=== PATIENT | female | born 1960 | race Caucasian/White ===

== ENCOUNTER 2018-04-03 19:43 | Emergency (ER) | payer BC, OTHER ==
[~2018-04-03] VITALS: Ht 170.2 cm; Wt 79.4 kg
[~2018-04-03 19:43] MED LIST: IBUPROFEN800 MG ORAL; MECLIZINE HCL25 MG ORAL
[2018-04-03 20:04] VITALS: BP 117/78
[2018-04-03 20:59] VITALS: BP 117/78
--- NOTE | 2018-04-03 21:03 | Diagnostic Imaging Report ---
EXAM: XR Right Foot Complete, 3 Views CLINICAL HISTORY: PAIN TECHNIQUE: Frontal, lateral and oblique views of the right foot. COMPARISON: No relevant prior studies available. FINDINGS: Bones/joints: Probable erosive changes in the region of the distal aspect of the proximal phalanx of the fifth digit. The margins appear corticated which suggests a chronic process. Mild joint space loss suspected of the first metatarsal phalangeal joint. No acute fracture. No dislocation. Soft tissues: Unremarkable. No radiopaque foreign body. IMPRESSION: No definite plain film evidence for acute fracture or dislocation. If there is continued clinical concern for fracture, consider CT or MRI for further evaluation. Chronic changes suspected of the fifth toe.
--- NOTE | 2018-04-03 22:28 | Emergency Room Report ---
History of Present Illness General Chief Complaint: Lower Extremity Injury Source: Patient Present Illness HPI 58-year-old female presents ED for evaluation. Complaining of right big toe pain. Started last night after she rolled her foot. Denies any other injuries. Notes pain and swelling to the right big toe. Throbbing, 9 out of 10 , nonradiating. Denies any other injuries. No other aggravating relieving factors. Denies any other associated symptoms Allergies: Coded Allergies: No Known Allergies (Unverified , 06/08/14) Patient History Past Medical History: none Past Surgical History: none Pertinent Family History: none Social History: Denies: smoking, alcohol use, drug use Now: No Immunizations: UTD Reviewed Nursing Documentation: PMH: Agreed; PSxH: Agreed Nursing Documentation-PMH Past Medical History: No Stated History Review of Systems All Other Systems: negative except mentioned in HPI Physical Exam Vital Signs Date Time Temp Pulse Resp B/P (MAP) Pulse Ox O2 Delivery O2 Flow Rate FiO2 04/03/18 19:46 98.1 68 18 117/78 99 Room Air Sp02 EP Interpretation: reviewed, normal General Appearance: no apparent distress, alert, GCS 15, non-toxic Head: normocephalic Eyes: bilateral eye normal inspection, bilateral eye PERRL ENT: normal ENT inspection Neck: normal inspection Respiratory: normal inspection Cardiovascular #1: normal inspection Gastrointestinal: normal inspection Rectal: deferred Genitourinary: no CVA tenderness Musculoskeletal: tender - R big toe. limited ROM Neurologic: alert, oriented x3, responsive, motor strength/tone normal, sensory intact, speech normal Psychiatric: normal inspection Skin: normal inspection Lymphatic: normal inspection Procedures Splinting Splinting : Consent: Verbal Pre-Made Type: kristel tape Pre-Proc Neuro Vasc Exam: normal Post-Proc Neuro Vasc Exam: normal Patient Tolerated: Well Complications: None Medical Decision Making Diagnostic Impression: Primary Impression: Toe injury Qualified Codes: S99.921A - Unspecified injury of right foot, initial encounter ER Course Hospital Course 58-year-old F presents to ED complaining of R big toe pain/swelling Differential diagnoses include: Fracture, dislocation, sprain, contusion Clinical course Patient placed on stretcher. After initial history and physical, I ordered xrays of R foot. patient declined pain meds Xrays read shows no acute fracture/dislocation. kristel tape applied. cast shoe given Discussed findings with patient. Recommend ice, rest, elevation. Analgesics. We'll provide podiatry referral as outpatient Diagnosis - toe injury Stable and discharged to home. apply ice, keep elevated. weight bear as tolerated. Followup with PMD/podiatry. Return to ED if symptoms recur or worsen Other X-Ray Diagnostic Results Other X-Ray Diagnostic Results : X-Ray ordered: R foot # of Views/Limited Vs Complete: 3 View Indication: Pain EP Interpretation: Yes Interpretation: no dislocation, no soft tissue swelling, no fractures Impression: No acute disease Electronically Signed by: Electronically signed by Albert Redding MD Last Vital Signs Date Time Temp Pulse Resp B/P (MAP) Pulse Ox O2 Delivery O2 Flow Rate FiO2 04/03/18 20:59 98.1 83 18 117/78 99 Room Air Status: improved Disposition: HOME, SELF-CARE Condition: Stable Referrals: PILAR TRINIDAD M.D., Farshid DPM Patient Instructions: How to Albert Last MD Apr 03, 2018 22:27
== END 2018-04-03 21:00 | disposition home or self-care (01) ==
LOC: EMR 20:14
DX: S99.921A Unspecified injury of right foot, initial encounter (principal); X50.1XXA Overexertion from prolonged static or awkward postures, initial encounter; Y92.89 Other specified places as the place of occurrence of the external cause
CPT/HCPCS: 99283

== ENCOUNTER → 2018-05-29 | Emergency (ER) | payer BC ==
[~2018-05-29] VITALS: Ht 172.7 cm; Wt 78.0 kg
[~2018-05-29] MED LIST changes: +ALBUTEROL SULF8.5 GM INH; +Albuterol ud Inhalation HHN ONE; +Ipratropium 0.02% Inh Soln 2.5ml UD HHN ONE; +MEDROL DOSEPAK4 MG ORAL; +ZOLOFT25 MG ORAL
--- NOTE | 2018-05-29 20:59 | NUR ---
ED Nurse Note: Received report. Pt from home, AAOx4, ambulatory, c/o asthma flare up that started Friday05/26/18 and continued with wheezing and consistent coughing. VSS. Will carry out MD orders.
[2018-05-29 21:00] VITALS: BP 107/90
--- NOTE | 2018-05-29 21:08 | Emergency Room Report ---
History of Present Illness General Chief Complaint: Asthma Source: Patient Present Illness HPI Patient present with complaints of asthma exacerbation ongoing since Friday Patient reports that she is out of her inhaler Denies any chest pain she has a mild cough denies any vomiting or diarrhea and eyes any fevers or chills denies any recent travel Allergies: Coded Allergies: No Known Allergies (Unverified , 06/08/14) Patient History Past Medical History: see triage record Pertinent Family History: none Last Menstrual Period: GONZALO Reviewed Nursing Documentation: PMH: Agreed; PSxH: Agreed Nursing Documentation-PMH Past Medical History: No History, Except For Hx Asthma: Yes Review of Systems All Other Systems: negative except mentioned in HPI Physical Exam Vital Signs Date Time Temp Pulse Resp B/P (MAP) Pulse Ox O2 Delivery O2 Flow Rate FiO2 05/29/18 20:53 98.4 101 16 136/70 95 Room Air Sp02 EP Interpretation: reviewed, normal General Appearance: well appearing, no apparent distress Head: normocephalic, atraumatic Eyes: bilateral eye PERRL, bilateral eye EOMI ENT: hearing grossly normal, normal pharynx, TMs + canals normal, uvula midline Neck: full range of motion, supple, no meningismus, no bony tend Respiratory: no rhonchi, no respiratory distress, no retraction, no accessory muscle use, wheezing - fine Bilaterally Cardiovascular #1: normal peripheral pulses, regular rate, rhythm, no edema, no gallop, no JVD, no murmur Gastrointestinal: normal bowel sounds, non tender, soft, no mass, no organomegaly, non-distended, no guarding, no hernia, no pulsatile mass, no rebound Genitourinary: no CVA tenderness Musculoskeletal: normal inspection Neurologic: oriented x3, responsive, fly finisher III-XII nml as tested, motor strength/ tone normal, sensory intact Psychiatric: mood/affect normal Skin: normal color, no rash, warm/dry, palpation normal Lymphatic: normal inspection, no adenopathy Medical Decision Making Diagnostic Impression: Primary Impression: Asthma attack ER Course Patient is a fairly complex patient with multiple differential to consideration including but not limited to cardiac cardiopulmonary and vascular emergencies Patient shows some evidence of wheezing on exam Breathing treatment was initiated in the ER Patient has done significantly better stable for close outpatient follow-up Rhythm Strip Diag. Results EP Interpretation: yes Rate: 70 Rhythm: NSR, no PVC's, no ectopy Last Vital Signs Date Time Temp Pulse Resp B/P (MAP) Pulse Ox O2 Delivery O2 Flow Rate FiO2 05/29/18 20:53 98.4 101 16 136/70 95 Room Air Status: improved Disposition: HOME, SELF-CARE Condition: Improved Scripts Methylprednisolone (Methylprednisolone*) 4MG Dspk 4 MG ORAL DIRECTED for 6 Days, #21 EA 0 Refills Day 1: Two tablets before breakfast, one after lunch, one after dinner, and two at bedtime. If started late in the day, take all six tablets at once or divide into two or three doses, unless otherwise directed by prescriber. Day 2: One tablet before breakfast, one after lunch, one after dinner, and two at bedtime Day 3: One tablet before breakfast, one after lunch, one after dinner, and one at bedtime Day 4: One tablet before breakfast, one after lunch, and one at bedtime Day 5: One tablet before breakfast and one at bedtime Day 6: One tablet before breakfast Prov: Mac Mendiola DO 05/29/18 Albuterol Sulfate* (ALBUTEROL SULFATE MDI*) 8.5 Gm Hfa.aer.ad 2 PUFF INH Q6H, #2 EA 0 Refills Prov: Mac Mendiola DO 05/29/18 Additional Instructions: Patient is provided with the discharge instructions notified to follow up with primary doctor in the next 2-3 days otherwise return to the er with any worsening symptoms. Please note that this report is being documented using [employer] technology. This can lead to erroneous entry secondary to incorrect interpretation by the dictating instrument. Mac Mendiola DO May 29, 2018 21:08
[2018-05-29 21:43] VITALS: BP 107/89
== END | disposition home or self-care (01) ==
LOC: EMR 21:30
DX: J45.901 Unspecified asthma with (acute) exacerbation (principal)
CPT/HCPCS: 94640; 94664; 99284

== ENCOUNTER 2018-06-01 10:09 | Emergency (ER) | payer BC ==
[~2018-06-01] VITALS: Ht 172.7 cm; Wt 78.0 kg
[~2018-06-01 10:09] MED LIST changes: -Albuterol ud Inhalation HHN ONE; -Ipratropium 0.02% Inh Soln 2.5ml UD HHN ONE
[2018-06-01 10:27] VITALS: BP 126/80
--- NOTE | 2018-06-01 10:27 | NUR ---
ED Nurse Note: PT WALKED IN TO ER TODAY FROM HOME. AOX4. PT C/O COUGH AND ASTHMA EXACERBATION. PT STATES SHE WAS SEEN X 3 DAYS AGO AND WAS DISCHARGED WITH STEROIDS AND AN INHALER BUT SYMPTOMS HAVE NOT BEEN RELIEVED. LUNG SOUNDS CLEAR IN ALL LOBES. NO SIGNS OF RESPIRATORY DISTRESS OR RETRACTIONS NOTED. RR18 @ 99% O2 SATURATION AT BEDSIDE.
[2018-06-01] MEDS ORDERED: Ipratropium 0.02% Inh Soln 2.5ml UD HHN ONE (11:00)
[2018-06-01] MEDS ORDERED: Albuterol ud Inhalation HHN ONE (11:00)
[2018-06-01] MEDS ORDERED: AMOXICILLIN500 MG ORAL (11:36)
[2018-06-01] MEDS ORDERED: PROMETHAZINE-C118 M1 ORAL (11:36)
[2018-06-01 11:40] VITALS: BP 124/76
--- NOTE | 2018-06-01 11:41 | NUR ---
ED Nurse Note: PT SITTING PEACEFULLY IN CHAIR IN NAD. AOX4. PRESCRIPTIONS AND DISCHARGE PAPERWORK EXPLAINED TO PT. PT VERBALIZES UNDERSTANDING AND ALL QUESTIONS ANSWERED. PRESCRIPTIONS AND DISCHARGE PAPERWORK GIVEN TO PT AND ID WRISTBAND REMOVED. PT WALKED OUT OF ER WITH STEADY GAIT.
--- NOTE | 2018-06-03 21:08 | Emergency Room Report ---
History of Present Illness General Chief Complaint: Upper Respiratory Illness Source: Patient Present Illness HPI 58-year-old female presents ED for evaluation. Patient states she's been complaining cough and wheezing or cough is productive with greenish phlegm. States she was seen here 3 days ago with similar symptoms. Was discharged with inhaler and steroids given breathing treatment here. States her symptoms are not improving. Notes body aches and chills. Denies sick contacts or recent travel. No other aggravating relieving factors. Denies any other associated symptoms Allergies: Coded Allergies: No Known Allergies (Unverified , 06/08/14) Patient History Past Medical History: asthma Past Surgical History: none Pertinent Family History: none Social History: Denies: smoking, alcohol use, drug use Now: No Immunizations: UTD Reviewed Nursing Documentation: PMH: Agreed; PSxH: Agreed Nursing Documentation-PMH Past Medical History: No History, Except For Hx Asthma: Yes Review of Systems All Other Systems: negative except mentioned in HPI Physical Exam Vital Signs Date Time Temp Pulse Resp B/P (MAP) Pulse Ox O2 Delivery O2 Flow Rate FiO2 06/01/18 10:14 99.0 93 20 129/78 99 Room Air 06/01/18 10:55 21 Sp02 EP Interpretation: reviewed, normal General Appearance: no apparent distress, alert, GCS 15, non-toxic Head: normocephalic Eyes: bilateral eye normal inspection, bilateral eye PERRL ENT: normal ENT inspection Neck: normal inspection Respiratory: chest non-tender, speaking full sentences, wheezing Cardiovascular #1: regular rate, rhythm, no edema Gastrointestinal: normal inspection Rectal: deferred Genitourinary: no CVA tenderness Musculoskeletal: normal inspection Neurologic: alert, oriented x3, responsive, motor strength/tone normal, sensory intact, speech normal Psychiatric: normal inspection Skin: normal inspection Lymphatic: normal inspection Medical Decision Making Diagnostic Impression: Primary Impression: Atypical pneumonia ER Course Hospital Course 58-year-old female presents to ED complaining of cough, congestion Differential diagnoses include: URI, bronchitis, asthma/COPD, pneumonia Clinical course Patient placed on stretcher. After initial history and physical I ordered prednisone and nebulizer treatment. Upon reassessment patient states cough and symptoms have improved. Given persistence of symptoms despite medication we'll treat as atypical pneumonia. We'll prescribe antibiotics. Safe for discharge or close outpatient follow-up and states she has a PMD Diagnosis - atpyical pneumonia Stable and discharged home with prescriptions for Rx promethazine, amoxicillin. Instructed to followup with PMD. Return to ED if symptoms recur or worsen Last Vital Signs Date Time Temp Pulse Resp B/P (MAP) Pulse Ox O2 Delivery O2 Flow Rate FiO2 06/01/18 11:40 98.6 88 19 124/76 100 Room Air 06/01/18 11:06 21 Status: improved Disposition: HOME, SELF-CARE Condition: Stable Scripts Codeine/Promethazine Hcl* (PROMETHAZINE-CODEINE SYRUP*) 118 Ml Syrup 5 ML ORAL Q6H PRN for For Cough, #118 ML 0 Refills Prov: Albert Redding MD 06/01/18 Amoxicillin* (AMOXIL*) 500 Mg Capsule 500 MG ORAL THREE TIMES A DAY, #21 CAP Prov: Albert Redding MD 06/01/18 Referrals: NON PHYSICIAN (PCP) Patient Instructions: Upper Respiratory Infection, Adult Albert Redding MD Jun 03, 2018 21:08
== END 2018-06-01 11:42 | disposition home or self-care (01) ==
LOC: EMR 10:25
DX: J18.9 Pneumonia, unspecified organism (principal); J45.909 Unspecified asthma, uncomplicated; Z72.89 Other problems related to lifestyle; F19.90 Other psychoactive substance use, unspecified, uncomplicated
CPT/HCPCS: 94640; 99284